=== PATIENT | female | born 1995 | race Caucasian/White ===

== ENCOUNTER 2020-09-24 11:37 | Emergency (ER) | payer OTHER ==
[~2020-09-24] VITALS: Ht 165.1 cm; Wt 54.1 kg
[2020-09-24 11:41] VITALS: BP 128/88; Ht 165.1 cm; Wt 54.1 kg
[2020-09-24 12:16] LABS: HCG SERUM POSITIVE (NEGATIVE)
[2020-09-24 12:24] LABS: ALKALINE PHOSPHATASE 58 U/L (30-120); ALT (SGPT) 15 U/L (10-68); CALCIUM 8.9 mg/dL (8.5-10.1); CARBON DIOXIDE 25.8 mmol/L (21.0-32.0); CREATININE - SERUM 0.7 mg/dL (0.6-1.3); GLUCOSE 108 mg/dL (74-106); PROTEIN - SERUM 7.7 g/dL (6.4-8.2); UREA NITROGEN 7 mg/dL (7-18); eGFR NON AFRICAN AMERICAN > 90 mL/min (90-120)
[2020-09-24 12:40] LABS: CALC OSMOLALITY 272 mosm/kg (275-300); CHLORIDE - SERUM 100 mmol/L (98-107); POTASSIUM - SERUM 3.3 mmol/L (3.5-5.1); SODIUM 137 mmol/L (136-145)
[2020-09-24 12:46] LABS: BASOPHILS 0.3 % (0-2); HEMATOCRIT 37.7 % (36.0-48.0); HEMOGLOBIN 11.8 g/dL (12-16); IMMATURE GRANULOCYTES 0.2 % (0-5); LYMPHOCYTE ABS# 1.58 10x3/uL (1.18-3.74); LYMPHOCYTES 27.1 % (15-50); MCH 28.4 pg (26.0-34.0); MCHC 31.3 g/dL (31.0-37.0); MCV 90.6 fL (80.0-100.0); MEAN PLATELET VOLUME 11.6 fL (7.4-10.4); MONOCYTES 6.3 % (2-11); NEUTROPHILS 65.1 % (40-80); PLATELET COUNT 302 10x3/uL (130-400); RBC 4.16 10x6/uL (4.00-5.40); RDW 14.4 % (11.5-14.5); WBC 5.8 10x3/uL (4.8-10.8)
[2020-09-24 12:50] LABS: BILIRUBIN NEGATIVE (NEGATIVE); KETONE NEGATIVE (NEGATIVE); NITRITE NEGATIVE (NEGATIVE); UROBILINOGEN NORMAL mg/dL (< 2)
[2020-09-24 12:52] LABS: BACTERIA MODERATE HPF (NONE SEEN); WHITE CELLS - URINE 0-5 HPF (0-4)
[2020-09-24 22:38] VITALS: Ht 165.1 cm; Wt 54.1 kg
== END 2020-09-24 17:46 | disposition left against medical advice (07) ==
LOC: D.ER 11:37
PROVIDERS: Emergency Medicine
DX: O20.0 Threatened abortion (principal); Z3A.01 Less than 8 weeks gestation of pregnancy; Z53.29 Procedure and treatment not carried out because of patient's decision for other reasons; E87.6 Hypokalemia

== ENCOUNTER 2020-09-24 20:39 | Outpatient (CLI) | payer OTHER ==
[~2020-09-24] VITALS: Ht 165.1 cm; Wt 54.1 kg
--- NOTE | 2020-09-24 21:13 | NUR ---
METHALTREXATE GIVEN WITH 22GA 1 1/2IN NEEDLE TO LEFT BUTTOCK AFTER VERIFYING NAME AND . INFORMATION SHEET GIVEN TO PATIENT. TOLERATED WITHOUT PROBLEMS. CALL LIGHT IN REACH
--- NOTE | 2020-09-24 22:08 | NUR ---
PIV INITIATED TO LEFT HAND X2 ATTEMPTS PER THIS RN. PIV SL AT THIS TIME. PT TOLERATED WELL.
[2020-09-24 22:22] LABS: BASOPHILS 0.3 % (0-2); EOSINOPHILS 0.9 % (0-7); HEMATOCRIT 31.9 % (36.0-48.0); HEMOGLOBIN 10.1 g/dL (12-16); IMMATURE GRANULOCYTES 0.1 % (0-5); LYMPHOCYTES 33.8 % (15-50); MCH 28.5 pg (26.0-34.0); MCHC 31.7 g/dL (31.0-37.0); MCV 89.9 fL (80.0-100.0); MEAN PLATELET VOLUME 11.1 fL (7.4-10.4); MONOCYTES 8.5 % (2-11); NEUTROPHIL ABS# 3.83 10x3/uL (1.56-6.13); NEUTROPHILS 56.4 % (40-80); PLATELET COUNT 252 10x3/uL (130-400); RBC 3.55 10x6/uL (4.00-5.40); RDW 14.1 % (11.5-14.5); WBC 6.8 10x3/uL (4.8-10.8)
--- NOTE | 2020-09-24 22:30 | NUR ---
PT A,A,OX4. VSS. SEE FULL ASSESSMENT PER FLOWSHEET. PI IN LT HAND SALINE LOCKED, C/D/I, EXTRA BLANKETS PROVIDED. CALL LIGHT WITHIN REACH. PT DENIES NEEDS AT THIS TIME.
[2020-09-24 22:36] VITALS: BP 98/57
[2020-09-24 22:38] VITALS: BP 98/57; Ht 165.1 cm; Wt 54.1 kg
--- NOTE | 2020-09-24 23:10 | NUR ---
DR SAMANO NOTIFIED OF PT RECEIVING METHOTREXATE. PAIN MEDICATION ORDERS CHANGED TO NORCO 5MG. SEE EMAR.
--- NOTE | 2020-09-24 23:22 | NUR ---
MEDICATIONS AMINISTERED PER EMAR. PT REQUESTS ADDITIONAL BLANKET. BLANKET AND ICE WATER PROVIDED.
--- NOTE | 2020-09-24 23:55 | NUR ---
LR INFUSING AT 125 MLS/HR IN LT HAND. PIV C/D/I. PT DENIES NEEDS AT THIS TIME.
--- NOTE | 2020-09-25 01:00 | NUR ---
PT RESTING WITH EYES CLOSED, RESPIRATIONS NON-LABORED.
--- NOTE | 2020-09-25 03:58 | NUR ---
PT RESTING, EASILY AROUSED TO VERBAL STIMULUS. DENIES PAIN OR NEEEDS AT THIS TIME.
[2020-09-25 05:34] VITALS: BP 91/57
[2020-09-25 05:52] LABS: BASOPHILS 0.5 % (0-2); EOSINOPHILS 1.4 % (0-7); HEMATOCRIT 32.2 % (36.0-48.0); IMMATURE GRANULOCYTES 0.2 % (0-5); LYMPHOCYTE ABS# 2.04 10x3/uL (1.18-3.74); LYMPHOCYTES 36.3 % (15-50); MCH 27.9 pg (26.0-34.0); MCHC 31.1 g/dL (31.0-37.0); MCV 89.9 fL (80.0-100.0); MEAN PLATELET VOLUME 10.9 fL (7.4-10.4); MONOCYTES 8.7 % (2-11); NEUTROPHIL ABS# 2.97 10x3/uL (1.56-6.13); NEUTROPHILS 52.9 % (40-80); PLATELET COUNT 259 10x3/uL (130-400); RBC 3.58 10x6/uL (4.00-5.40); RDW 14.4 % (11.5-14.5); WBC 5.6 10x3/uL (4.8-10.8)
--- NOTE | 2020-09-25 06:36 | NUR ---
PT RESTING WIHT EYES CLOSED, BREATHING NON-LABORED.
--- NOTE | 2020-09-25 07:06 | NUR ---
THIS RN AND Ronn CHARLES RN TO BEDSIDE FOR BEDSIDE SHIFT REPORT. PT CURRENTLY SLEEPING. PT LEFT UNDISTURBED AT THIS TIME.
[2020-09-25 08:24] VITALS: BP 101/69
--- NOTE | 2020-09-25 08:26 | NUR ---
RN TO BEDSIDE. PT AWAKE. IV PUMP SOUNDING. VOLUME RESET. PT ASSESSED FOR PAIN AND VAG BLEEDING. PT DENIES BOTH. POC DISCUSSED. PT VERBALIZES UNDERSTANDING AND AGREEABLE. ICE WATER SERVED.
--- NOTE | 2020-09-25 09:00 | NUR ---
DR SAMANO ON THE UNIT. REPORT OF AM LABS GIVEN. TO PT'S BEDSIDE.
--- NOTE | 2020-09-25 09:06 | NUR ---
ZOFRAN 8MG ODT ADMIN. SEE EMAR. PT INFORMED DISCHARGE PAPERS WILL BE PREPARED AND BROUGHT BACK TO HER FOR DISCHARGE.
--- NOTE | 2020-09-25 09:15 | NUR ---
ORDERS REC'D TO DISCHARGE PT HOME.
--- NOTE | 2020-09-25 09:35 | NUR ---
RN TO BEDSIDE FOR DISCHARGE TEACHING. PT NOW REPORTS LOWER RT ABD PAIN HAS RETURNED. RATES PAIN /. STATES "IT'S JUST ANNOYING". PT INFORMED THAT DR SAMANO WILL BE CALLED FOR PT IS DISCHARGED HOME. PT IS AGREEABLE.
--- NOTE | 2020-09-25 09:40 | NUR ---
DR SAMANO CALLED TO GIVE REPORT OF PT'S REPORT OF PAIN RETURNING. RATES IT 01/02 AND IS REQUESTING TYLENOL. ORDERS REC'D TO GIVE 500MG TYLENOL AND HAVE PT REMAIN ON L&D TO SEE IF TYLENOL REDUCES HER PAIN.
--- NOTE | 2020-09-25 09:45 | NUR ---
RN TO BEDSIDE FOR TYLENOL 650MG PO. COLA SERVED. PT INFOMED DR SAMANO REQUEST SHE REMAINS ON THE UNIT X 1-2HRS TO SEE IF TYLENOL HELPS HER PAIN. PT AGREEABLE. IV RATE DECREASED TO 5ML/HR.
--- NOTE | 2020-09-25 10:28 | NUR ---
PT RINGS CALL LIGHT. REQUEST TO BE DISCHARGED HOME NOW. REPORTS PAIN IS GONE. RATES 0/10. INFOMRED DR SAMANO WILL BE NOTIFIED FOR CONTINUED ORDERS FOR DISCHARGE.
--- NOTE | 2020-09-25 10:30 | NUR ---
DR SAMANO CALLED. REPORT GIVEN THAT PT REPORTS PAIN HAS GONE AND REQUEST TO BE DISCHARGED HOME. ORDERS REC'D TO DISCHARGE PT HOME.
--- NOTE | 2020-09-25 10:35 | NUR ---
RN TO BEDSIDE FOR DISCHARGE TEACHING. PT EDUCATION PAGE PROVIDED BY ALISE SALAZAR RN GIVE TO PT IN REGARDS TO METHETREXATE ADMIN. RX FOR TYLENOL # 3 PROVIDED TO PT W/TEACHING. PT VERBALZIES UNDERSTANDING AND DENIES QUESTIONS AT THIS TIME. DISCHARGE PAPERS SIGNED. COPY PROVIDED TO PT. IV SITE D/C'D INTACT AND BANDAID PLACED OVER SITE. PT DISCHARGED HOME IN STABLE CONDITION. AMBULATORY OFF UNIT PER SELF AT THIS TIME.
== END 2020-09-25 10:44 | disposition home or self-care (01) ==
LOC: D.LDO 20:39 → D.LD 20:43 → D.LDO 09-25 10:44
PROVIDERS: Student in an Organized Health Care Education/Training Program; ATTEND Obstetrics & Gynecology
DX: O26.891 Other specified pregnancy related conditions, first trimester (principal); Z3A.13 13 weeks gestation of pregnancy; R10.9 Unspecified abdominal pain

== ENCOUNTER → 2020-09-27 10:12 | Outpatient (CLI) | payer OTHER ==
[2020-09-24 22:38] VITALS: BMI 19.8
[2020-09-27 10:49] LABS: HCG SERUM POSITIVE (NEGATIVE)
== END | disposition home or self-care (01) ==
LOC: D.LAB 10:12
PROVIDERS: ATTEND Student in an Organized Health Care Education/Training Program
DX: O00.90 Unspecified ectopic pregnancy without intrauterine pregnancy (principal)

== ENCOUNTER 2020-11-15 11:38 | Emergency (ER) | payer OTHER ==
[~2020-11-15] VITALS: Ht 165.1 cm; Wt 54.5 kg
[2020-11-15 11:42] VITALS: Ht 165.1 cm; Wt 54.5 kg
[2020-11-15] MEDS ORDERED: ZOFRAN ODT4 MG/UDTAB PO (11:46)
[2020-11-15] MEDS ORDERED: CEPHALEXIN500 M1 PO (11:48)
[2020-11-15 13:04] VITALS: BP 132/68
== END 2020-11-15 13:05 | disposition home or self-care (01) ==
LOC: D.ER 11:38
DX: K04.7 Periapical abscess without sinus (principal); K02.9 Dental caries, unspecified